=== PATIENT | female | born 1990 ===

== ENCOUNTER → 2018-11-29 21:38 | Outpatient (REF) | payer OTHER, SELFPAY ==
[2018-11-29 22:17] LABS: Add Manual Diff / Slide Review NO; Basophils Absolute Auto 0 /uL (0-100); Basophils Percent Auto 0.6 % (0-2); Eosinophils Absolute Auto 100 /uL (0-450); Eosinophils Percent Auto 1.4 % (2-4); Hematocrit 42.9 % (36-46); Hemoglobin 13.9 g/dL (12.0-16.0); Lymphocytes Absolute Auto 1700 /uL (1100-4500); Lymphocytes Percent Auto 26.5 % (25-40); Mean Corpuscular HGB Conc 32.4 % (30-36); Mean Corpuscular Hemoglobin 31.3 PG (26-34); Mean Corpuscular Volume 96.5 fL (80-100); Monocytes Absolute Auto 400 /uL (0-900); Monocytes Percent Auto 6.7 % (3-14); Neutrophils Absolute Auto 4300 /uL (1500-7000); Neutrophils Percent Auto 64.8 % (50-75); Platelet Count 268 X10^3/uL (150-400); Red Blood Cell Count 4.45 X10^6/uL (4.0-5.2); Red Cell Distribution Width 13.7 % (11.6-14.8); White Blood Cell Count 6.6 X10^3/uL (4.5-11.0)
[2018-11-29 22:28] LABS: HEMOLYSIS < 15 (0-50); Iron 103 ug/dL (37-170)
[2018-11-29 22:39] LABS: Percent Iron Saturation 30 % (15-50); Total Iron Binding Capacity 349 ug/dL (265-497); Transferrin 266 mg/dL (206-381)
[2018-11-29 22:51] LABS: Ferritin 20.7 ng/mL (6.27-137)
== END ==
LOC: LAB 21:38
PROVIDERS: Visit Provider Naturopath
DX: D50.0 Iron deficiency anemia secondary to blood loss (chronic) (principal)
CPT/HCPCS: 36415; 82728; 83540; 83550; 85025